=== PATIENT | male | born 1985 | race Caucasian/White ===

== ENCOUNTER 2018-05-15 15:37 | Emergency (ER) | payer OTHER ==
[~2018-05-15] VITALS: Ht 190.5 cm; Wt 93.4 kg
== END 2018-05-15 17:28 | disposition home or self-care (01) ==
LOC: ED 15:37
DX: S20.219A Contusion of unspecified front wall of thorax, initial encounter (principal); V47.5XXA Car driver injured in collision with fixed or stationary object in traffic accident, initial encounter; Z88.5 Allergy status to narcotic agent
CPT/HCPCS: 71046; 99284

== ENCOUNTER 2023-04-26 11:05 | Emergency (ER) | payer OTHER ==
[~2023-04-26] VITALS: Ht 190.5 cm; Wt 93.4 kg
[2023-04-26 11:34] LABS: BASOPHILS 0.4 % (0-2); EOSINOPHILS 1.5 % (0-6); HEMATOCRIT 41.8 % (35.0-50.0); HEMOGLOBIN 13.6 g/dL (12.0-18.0); LYMPHOCYTES 25.9 % (24-44); MCH 27.3 (27-36); MCHC 32.5 g/dl (30-36); MCV 84.1 fl (81-99); MONOCYTES 11.5 % (0-12); NEUTROPHILS 60.7 % (39-80); PLATELET COUNT 265 K/uL (140-440); RBC 4.97 M/ul (4.3-5.7); RDW 15.3 (10.5-15.0)
[2023-04-26 11:54] LABS: ALBUMIN 4.1 g/dL (3.4-5.0); ALBUMIN/GLOBULIN RATIO 0.93 (1.1-2.4); ANION GAP 12.2 (7-21); BILIRUBIN, TOTAL 0.4 ng/dL (0.2-1.0); BUN/CREATININE RATIO 12.37 (6.0-28.6); CREATININE, SERUM 0.97 mg/dL (0.70-1.30); MAGNESIUM 2.1 mg/dL (1.8-2.4); POTASSIUM 4.2 mmol/L (3.5-5.1); PROTEIN, TOTAL 8.5 g/dL (6.4-8.2)
[2023-04-26 13:03] VITALS: BP 128/85
--- NOTE | 2023-04-27 05:50 | EKG ---
[facility] [address] [facility] [place], [place] [address] Signed Sinus bradycardia Borderline ECG No previous ECGs available Confirmed by GRACIELA WOLF MD ([id number] on 04/27/2023 5:49:53 AM Electronically Signed By: GRACIELA WOLF 04/27/23 0550 PATIENT NAME: LINA VICENTE Electrocardiogram DATE OF : 89 PHYSICIAN: GRACIELA WOLF REPORT #: [id number] REPORT IS CONFIDENTIAL AND NOT TO BE RELEASED WITHOUT AUTHORIZATION
== END 2023-04-26 13:05 | disposition home or self-care (01) ==
LOC: ED 11:05
PROVIDERS: Emergency Medicine
DX: R07.9 Chest pain, unspecified (principal); M54.12 Radiculopathy, cervical region; Z88.5 Allergy status to narcotic agent
CPT/HCPCS: 36415; 71045; 80053; 83735; 84484; 85025; 93005; 93010